=== PATIENT | female | born 1965 | race Hispanic/Latino ===

== ENCOUNTER 2023-03-04 09:42 | Outpatient (RCR) | payer MEDICARE ==
[2023-03-04 14:54] LABS: HEMATOCRIT 24.2 % (34.2-44.1); HEMOGLOBIN 7.3 g/dL (12.0-16.0); MEAN CORPUSCULAR HEMOGLOBIN 32.6 pg (28-32); MEAN CORPUSCULAR HGB CONC 30.2 g/dL (31-35); PLATELET COUNT 200 x10e3/uL (140-360); RED BLOOD COUNT 2.24 x10e6/uL (3.6-5.1); RED CELL DISTRIBUTION WIDTH 12.8 % (11.7-14.4)
[2023-03-04 15:00] LABS: LYMPHOCYTES % (MANUAL) 16 % (19-48); MONOCYTES % (MANUAL) 6 % (3.4-9.0); NEUTROPHILS % (MANUAL) 78 % (40-74); PLATELET MORPHOLOGY COMMENT NORMAL; RBC MORPHOLOGY COMMENT NORMAL
[2023-03-04 15:01] LABS: PLATELET ESTIMATE ADEQUATE
[2023-03-04 15:17] LABS: ALBUMIN 2.5 g/dL (3.5-5.0); ALBUMIN/GLOBULIN RATIO 0.7 (0.8-2.0); ANION GAP 14.1 mmol/L (8-16); CALCIUM 8.5 mg/dL (8.4-10.2); CREATININE, SERUM 1.13 mg/dL (0.57-1.11); POTASSIUM 5.1 mmol/L (3.5-5.1)
== END 2023-03-11 ==
LOC: WCC 09:42
PROVIDERS: ATTEND Internal Medicine Infectious Disease
DX: E11.621 Type 2 diabetes mellitus with foot ulcer (principal); L97.528 Non-pressure chronic ulcer of other part of left foot with other specified severity; R60.0 Localized edema
CPT/HCPCS: 36415; 80053; 82948; 83036; 84134; 85007; 85027

== ENCOUNTER → 2023-03-18 | Outpatient (CLI) | payer MEDICARE, OTHER | LOC: RAD 10:23 | PROVIDERS: ATTEND Internal Medicine Infectious Disease | DX: I73.9 Peripheral vascular disease, unspecified (principal); E11.621 Type 2 diabetes mellitus with foot ulcer; L97.528 Non-pressure chronic ulcer of other part of left foot with other specified severity ==

== ENCOUNTER → 2025-01-02 | Outpatient (REF) | payer MEDICARE, OTHER | LOC: RAD 08:53 | PROVIDERS: ATTEND Family Medicine | DX: M79.672 Pain in left foot (principal) ==